=== PATIENT | female | born 1970 | race Caucasian/White ===

== ENCOUNTER 2017-11-22 08:56 | Day surgery (SDC) | payer OTHER ==
[2017-11-22] MEDS ORDERED: LIDOCAINE 4% SOLUTION 50 ML BTL (10:19)
[2017-11-22] MEDS ORDERED: MIDAZOLAM 1 MG/ML 2 ML INJ ×2 (10:57)
[2017-11-22] MEDS ORDERED: FENTAnyl 50 MCG/ML VIAL (10:58)
== END 2017-11-22 11:50 | disposition home or self-care (01) ==
LOC: GIL 08:56
DX: K29.50 Unspecified chronic gastritis without bleeding (principal)
CPT/HCPCS: 43239; 84703; 88305; 88312